=== PATIENT | female | born 1970 | race African-American/Black ===

== ENCOUNTER 2020-10-24 14:43 | Emergency (ER) | payer SELFPAY ==
[~2020-10-24] VITALS: Ht 170.2 cm; Wt 97.0 kg
[2020-10-24] MEDS ORDERED: IV NORMAL SALINE 1000ML BAG 1,000 ML IV ONE (14:45)
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
[2020-10-24 15:18] LABS: BASO # 0.1 x10^3/uL (0.0-0.2); BASO % 1 % (0-3); EOS # 0.1 x10^3/uL (0.0-0.7); EOS % 2 % (0-3); HEMATOCRIT 32.8 % (36.0-47.0); HEMOGLOBIN 10.5 g/dL (12.0-15.5); LYMPH # 1.7 x10^3/uL (1.0-4.8); LYMPH % 26 % (24-48); MEAN CORPUSCULAR HEMOGLOBIN 23 pg (25-35); MEAN CORPUSCULAR HGB CONC 32 g/dL (31-37); MEAN CORPUSCULAR VOLUME 71 fL (79-100); MONO # 0.3 x10^3/uL (0.0-1.1); MONO % 4 % (0-9); NEUT # 4.4 x10^3/uL (1.8-7.7); NEUT % 67 % (31-73); PLATELET COUNT 339 x10^3/uL (140-400); RED CELL DISTRIBUTION WIDTH 17.8 % (11.5-14.5); WHITE BLOOD COUNT 6.5 x10^3/uL (4.0-11.0)
--- NOTE | 2020-10-24 15:27 | RAD ---
PQRS Compliance Statement: One or more of the following individualized dose reduction techniques were utilized for this examinat ion: 1. Automated exposure control 2. Adjustment of the mA and/or kV according to patient size 3. Use of iterative reconstruction technique CT HEAD AND CERVICAL SPINE WITHOUT CONTRAST History: Reason: syncope, and neck pain Comparison: None. Procedure: Axial images are obtained of the head from the skull base through the vertex without IV co ntrast. Noncontrast helical CT of the cervical spine was performed. Axial, sagittal, and coronal rec onstructions were obtained. Findings: The ventricles and sulci are normal for the patient's age. No mass-effect, midline shift, hemorrhage or obvious acute infarction is identified. Basilar cistern s are patent. Bone windows demonstrate no significant calvarial abnormality. The visualized paranasal sinuses are clear. Mastoid air cells are well aerated. There is no evidence of acute fracture or acute malalignment of the cervical spine. Straightening and mild reversal of normal cervical lordosis may be positional or due to muscle spasm. There is degenerative endplate spurring throughout the cervical spine, most advanced at C5/C6 and C6 /C7 and C7/T1. There is also mild disc space narrowing at these levels. The facet joints are intact. There is some degree of central canal stenosis in the lower cervical spine. Visualized soft tissues of the neck demonstrate no significant abnormalities. The visualized lung api jagjit are clear. IMPRESSION: 1. No acute intracranial abnormality. 2. No acute fracture of the cervical spine. Electronically signed by: Phillip Thomas MD (10/24/2020 3:25 PM) [facility]
[2020-10-24 15:33] LABS: CALCIUM 9.5 mg/dL (8.5-10.1); CREATININE 1.6 mg/dL (0.6-1.0); GFR 34.3
[2020-10-24 15:40] LABS: ALBUMIN 3.6 g/dL (3.4-5.0); ALBUMIN/GLOBULIN RATIO 0.8 (1.0-1.7); MAGNESIUM 2.2 mg/dL (1.8-2.4); TOTAL BILIRUBIN 0.4 mg/dL (0.2-1.0); TOTAL PROTEIN 7.9 g/dL (6.4-8.2)
[2020-10-24 15:49] LABS: CREATINE KINASE 104 U/L (26-192)
[2020-10-24 15:56] VITALS: BP 155/82
[2020-10-24 17:03] LABS: BILIRUBIN,URINE NEGATIVE (NEG); CLARITY,URINE CLEAR; COLOR,URINE YELLOW; NITRITE,URINE NEGATIVE (NEG); PROTEIN,URINE NEGATIVE (NEG-TRACE); UROBILINOGEN,URINE 0.2 mg/dL (0.2 mg/dL)
[2020-10-24 17:11] LABS: PLT ESTIMATE ADEQUATE (ADEQUATE); POLYCHROMASIA SLIGHT
[2020-10-24 17:12] LABS: ANISOCYTOSIS SLIGHT; HYPOCHROMIA MOD; MICROCYTOSIS MOD
[2020-10-24 17:14] LABS: HYALINE CASTS, URINE MODERATE /HPF
[2020-10-24 17:15] LABS: BACTERIA,URINE MANY /HPF (0-FEW); WBC,URINE >40 /HPF (0-4)
[2020-10-24] MEDS ORDERED: CEPH500C PO (17:52)
[2020-10-24] MEDS ORDERED: cefTRIAXone IV Push 1 GM VIAL. IVP ONE (18:00)
--- NOTE | 2020-10-24 18:30 | EKG ---
[facility] [address] [place] [id number] Test Date: 2020-10-24 Test Time: 16:20:39 Pat Name: NERY MARTINEZ Department: Room: Gender: F [employer]er: : 1970 Requested By: ALEXA BRANDT Order Number: [id number] Reading MD: Measurements Intervals [place] Rate: 57 P: 26 SC: 142 QRS: 26 QRSD: 74 T: 10 QT: 396 QTc: 388 Interpretive Statements SINUS RHYTHM LEFT ATRIAL ABNORMALITY ABNORMAL ECG RI6.01 No previous ECG available for comparison
== END 2020-10-24 18:01 | disposition home or self-care (01) ==
LOC: ER 14:43
DX: N30.00 Acute cystitis without hematuria (principal); R55 Syncope and collapse; M54.2 Cervicalgia
CPT/HCPCS: 36415; 70450; 72125; 80053; 81001; 81025; 82553; 83735; 84484; 85025; 87086; 93005; 96361; 96374; 99285; J0696; J7030; 87077; 87186